=== PATIENT | female | born 1960 | race Hispanic/Latino ===

== ENCOUNTER 2017-09-07 15:48 | Emergency (ER) | payer MEDICARE ==
[2017-09-07 21:05] LABS: Basophils # (Auto) 0.1 K/mm3 (0.0-0.1); Basophils % (Auto) 0.8 % (0.0-1.8); Eosinophils # (Auto) 0.3 K/mm3 (0.0-0.4); Eosinophils % (Auto) 4.4 % (0.0-4.3); Hematocrit 35.9 % (30.3-42.9); Hemoglobin 11.8 gm/dl (10.1-14.3); Lymphocytes # (Auto) 2.1 K/mm3 (1.2-5.4); Lymphocytes % (Auto) 29.7 % (13.4-35.0); Mean Corpuscular HGB Conc 33 % (30-34); Mean Corpuscular Hemoglobin 30 pg (28-32); Mean Corpuscular Volume 91 fl (79-97); Monocytes # (Auto) 0.7 K/mm3 (0.0-0.8); Monocytes % (Auto) 9.6 % (0.0-7.3); Platelet Count 245 K/mm3 (140-440); Red Blood Count 3.95 M/mm3 (3.65-5.03); Red Cell Distribution Width 13.8 % (13.2-15.2)
[2017-09-07 21:16] LABS: BUN/Creatinine Ratio 25; Blood Urea Nitrogen 15 mg/dL (7-17); Calcium 9.1 mg/dL (8.4-10.2); Hemolysis Index 4
--- NOTE | 2017-09-07 21:48 | Emergency Department Report ---
- General Chief complaint: Medical Clearance Stated complaint: ABCESS ON BACK, POSS SPIDER BITE Time Seen by Provider: 09/07/17 19:52 Source: patient Mode of arrival: Ambulatory Limitations: No Limitations - History of Present Illness Initial comments: This is a 57-year-old female nontoxic, well nourished in appearance, no acute signs of distress presents to the ED with c/o of insect bite to left upper back x4 months ago. Patient stated that she believes she was bit by insect 4 months ago and developed redness and pain. PAtient stated that the pain causes her to have weakness and body aches. Patient denies any pus, drainage, fever, chills, nausea, vomiting, headache, stiff neck, numbness or tingling. Patient stated allergies to Levofloxin, doxycycline and penicillin. Patient stated PMH includes arthritis, COPD, hypertension, psychiatric. Patient stated that she is up-to-date with tetanus. MD complaint: insect bite/sting -: month(s) (4) Tetanus Up to Date: yes Location: back Severity: mild Severity scale (0 -10): 8 Quality: aching Consistency: constant Improves with: none Worsens with: none Context: none Associated symptoms: denies other symptoms Treatments Prior to Arrival: none - Related Data Home Medications Medication Instructions Recorded Confirmed Last Taken Citalopram Hydrobromide [celeXA] 40 mg PO DAILY 12/31/12 05/22/13 12/18/15 Albuterol Sulfate [Ventolin HFA] 2 puff IH Q4H PRN 05/22/13 05/22/13 Unknown Promethazine [Phenergan] 25 mg PO Q6H PRN 05/22/13 05/22/13 12/18/15 oxyCODONE [Roxicodone] 5 mg PO Q6H PRN 05/22/13 05/22/13 Unknown Previous Rx's Medication Instructions Recorded Last Taken Type Sulfamethoxazole/Trimethoprim 1 each PO BID #20 tablet 12/10/15 12/18/15 Rx [Bactrim DS TAB] Ibuprofen [Motrin] 800 mg PO Q8HR PRN #30 tablet 12/18/15 Unknown Rx traMADol [Ultram 50 MG tab] 50 mg PO Q4HR PRN #20 tablet 12/18/15 Unknown Rx Acetaminophen/Codeine [Tylenol 1 tab PO Q6H PRN #12 tab 09/07/17 Unknown Rx /Codeine # 3 tab] Clindamycin [Clindamycin CAP] 300 mg PO Q8H #21 cap 09/07/17 Unknown Rx Ibuprofen [Motrin] 600 mg PO Q8H PRN #30 tablet 09/07/17 Unknown Rx Allergies Allergy/AdvReac Type Severity Reaction Status Date / Time doxycycline Allergy Shortness Verified 09/25/15 04:09 of Breath levofloxacin [From Levaquin] Allergy Hives Verified 09/25/15 04:10 Penicillins Allergy Hives Verified 09/25/15 04:09 Abscess Boil HPI - HPI Chief Complaint: Medical Clearance Stated Complaint: ABCESS ON BACK, POSS SPIDER BITE Time Seen by Provider: 09/07/17 19:52 Home Medications: Home Medications Medication Instructions Recorded Confirmed Last Taken Citalopram Hydrobromide [celeXA] 40 mg PO DAILY 12/31/12 05/22/13 12/18/15 Albuterol Sulfate [Ventolin HFA] 2 puff IH Q4H PRN 05/22/13 05/22/13 Unknown Promethazine [Phenergan] 25 mg PO Q6H PRN 05/22/13 05/22/13 12/18/15 oxyCODONE [Roxicodone] 5 mg PO Q6H PRN 05/22/13 05/22/13 Unknown Previous Rx's Medication Instructions Recorded Last Taken Type Sulfamethoxazole/Trimethoprim 1 each PO BID #20 tablet 12/10/15 12/18/15 Rx [Bactrim DS TAB] Ibuprofen [Motrin] 800 mg PO Q8HR PRN #30 tablet 12/18/15 Unknown Rx traMADol [Ultram 50 MG tab] 50 mg PO Q4HR PRN #20 tablet 12/18/15 Unknown Rx Acetaminophen/Codeine [Tylenol 1 tab PO Q6H PRN #12 tab 09/07/17 Unknown Rx /Codeine # 3 tab] Clindamycin [Clindamycin CAP] 300 mg PO Q8H #21 cap 09/07/17 Unknown Rx Ibuprofen [Motrin] 600 mg PO Q8H PRN #30 tablet 09/07/17 Unknown Rx Allergies/Adverse Reactions: Allergies Allergy/AdvReac Type Severity Reaction Status Date / Time doxycycline Allergy Shortness Verified 09/25/15 04:09 of Breath levofloxacin [From Levaquin] Allergy Hives Verified 09/25/15 04:10 Penicillins Allergy Hives Verified 09/25/15 04:09 ED Review of Systems ROS: Stated complaint: ABCESS ON BACK, POSS SPIDER BITE Other details as noted in HPI Constitutional: denies: chills, fever Eyes: denies: eye pain, eye discharge, vision change ENT: denies: ear pain, throat pain Respiratory: denies: cough, shortness of breath, wheezing Cardiovascular: denies: chest pain, palpitations Endocrine: no symptoms reported Gastrointestinal: denies: abdominal pain, nausea, diarrhea Genitourinary: denies: urgency, dysuria, discharge Musculoskeletal: denies: back pain, joint swelling, arthralgia Skin: denies: rash, lesions Neurological: denies: headache, weakness, paresthesias Psychiatric: denies: anxiety, depression Hematological/Lymphatic: denies: easy bleeding, easy bruising ED Past Medical Hx - Past Medical History Hx Hypertension: Yes Hx Arthritis: Yes (osteoarthritis) Hx Psychiatric Treatment: Yes (manic depression) Hx COPD: Yes Additional medical history: IBS, DJD - Surgical History Additional Surgical History: R Knee Surg in August 2012. tubal ligation - Social History Smoking Status: Current Every Day Smoker Substance Use Type: None - Medications Home Medications: Home Medications Medication Instructions Recorded Confirmed Last Taken Type Citalopram Hydrobromide [celeXA] 40 mg PO DAILY 12/31/12 05/22/13 12/18/15 History Albuterol Sulfate [Ventolin HFA] 2 puff IH Q4H PRN 05/22/13 05/22/13 Unknown History Promethazine [Phenergan] 25 mg PO Q6H PRN 05/22/13 05/22/13 12/18/15 History oxyCODONE [Roxicodone] 5 mg PO Q6H PRN 05/22/13 05/22/13 Unknown History Sulfamethoxazole/Trimethoprim 1 each PO BID #20 tablet 12/10/15 12/18/15 Rx [Bactrim DS TAB] Ibuprofen [Motrin] 800 mg PO Q8HR PRN #30 tablet 12/18/15 Unknown Rx traMADol [Ultram 50 MG tab] 50 mg PO Q4HR PRN #20 tablet 12/18/15 Unknown Rx Acetaminophen/Codeine [Tylenol 1 tab PO Q6H PRN #12 tab 09/07/17 Unknown Rx /Codeine # 3 tab] Clindamycin [Clindamycin CAP] 300 mg PO Q8H #21 cap 09/07/17 Unknown Rx Ibuprofen [Motrin] 600 mg PO Q8H PRN #30 tablet 09/07/17 Unknown Rx ED Physical Exam - General Limitations: No Limitations General appearance: alert, in no apparent distress - Head Head exam: Present: atraumatic, normocephalic - Eye Eye exam: Present: normal appearance Pupils: Present: normal accommodation - ENT ENT exam: Present: normal exam, mucous membranes moist - Neck Neck exam: Present: normal inspection, full ROM. Absent: tenderness, meningismus, lymphadenopathy - Respiratory Respiratory exam: Present: normal lung sounds bilaterally. Absent: respiratory distress, wheezes, rales, rhonchi, stridor, chest wall tenderness, accessory muscle use, decreased breath sounds, prolonged expiratory - Cardiovascular Cardiovascular Exam: Present: regular rate, normal rhythm, normal heart sounds. Absent: bradycardia, tachycardia, irregular rhythm, systolic murmur, diastolic murmur, rubs, gallop - GI/Abdominal GI/Abdominal exam: Present: soft, normal bowel sounds. Absent: distended, tenderness, guarding, rebound, rigid, diminished bowel sounds - Rectal Rectal exam: Present: deferred - Extremities Exam Extremities exam: Present: normal inspection, full ROM, normal capillary refill. Absent: tenderness - Back Exam Back exam: Present: normal inspection, full ROM, other (small scab to upper back with no signs of cellulitits or abscess formation). Absent: tenderness, CVA tenderness (R), CVA tenderness (L), muscle spasm, paraspinal tenderness, vertebral tenderness, rash noted - Neurological Exam Neurological exam: Present: alert, oriented X3, CN II-XII intact, normal gait - Psychiatric Psychiatric exam: Present: normal affect, normal mood - Skin Skin exam: Present: warm, dry, intact, normal color. Absent: rash ED Course Vital Signs 09/07/17 16:04 Temperature 98.3 F Pulse Rate 83 Respiratory 18 Rate Blood Pressure 114/80 O2 Sat by Pulse 99 Oximetry - Reevaluation(s) Reevaluation #1: 09/07/17 21:46 Patient is speaking in full sentences with no signs of distress noted. ED Medical Decision Making - Lab Data Result diagrams: 09/07/17 20:50 09/07/17 20:50 - Medical Decision Making This is a 57-year-old female that presents with left back scab pain. Vision stable was examined by me. Upon examination there is no signs of any abscess, or cellulitis. Patient is pointing to the scab site pain and stated that he is concerned that he is developing an abscess. I instructed and educated patient that this is related to a scap but patient stated she wants to be treated empirically with antibiotics. Labs unremarkable. I will discharge patient with Clinda as she is requesting needs to prescribe it. Patient was referred to Follow-up with a primary care doctor in 3-5 days or if symptoms worsen and continue return to emergency room as soon as possible. At time of discharge, the patient does not seem toxic or ill in appearance. No acute signs of distress noted. Patient agrees to discharge treatment plan of care. No further questions noted by the patient. Critical care attestation.: If time is entered above; I have spent that time in minutes in the direct care of this critically ill patient, excluding procedure time. ED Disposition Clinical Impression: Scab Disposition: [id number] TO HOME OR SELFCARE Is pt being admited?: No Does the pt Need Aspirin: No Condition: Stable Instructions: Acetaminophen/Codeine (By mouth) Additional Instructions: Follow-up with a primary care doctor in 3-5 days or if symptoms worsen and continue return to emergency room as soon as possible. Do not operate any machinery while taking Tylenol with codeine as this may cause drowsiness. Prescriptions: Acetaminophen/Codeine [Tylenol /Codeine # 3 tab] 1 tab PO Q6H PRN #12 tab PRN Reason: Pain , Severe (7-10) Clindamycin [Clindamycin CAP] 300 mg PO Q8H #21 cap Ibuprofen [Motrin] 600 mg PO Q8H PRN #30 tablet PRN Reason: Pain Referrals: ROGERIO CASTANEDA MD [Primary Care Provider] - 3-5 Days PRIMARY CAREMD [Referring] - 3-5 Days DARION DYER MD [Staff Physician] - 3-5 Days [facility] [Outside] - 3-5 Days
[2017-09-07 22:01] VITALS: BP 122/80
== END 2017-09-07 22:01 | disposition home or self-care (01) ==
LOC: ED 15:48
DX: R23.4 Changes in skin texture (principal); I10 Essential (primary) hypertension; M19.90 Unspecified osteoarthritis, unspecified site; F32.9 Major depressive disorder, single episode, unspecified; J44.9 Chronic obstructive pulmonary disease, unspecified; F17.200 Nicotine dependence, unspecified, uncomplicated; Z98.51 Tubal ligation status; Z88.1 Allergy status to other antibiotic agents; Z88.0 Allergy status to penicillin
CPT/HCPCS: 36415; 80048; 85025; 99283

== ENCOUNTER 2017-10-04 15:47 | Emergency (ER) | payer MEDICARE ==
--- NOTE | 2017-10-04 19:04 | Emergency Department Report ---
ED Rash HPI - HPI Chief Complaint: Skin Rash Stated Complaint: STAPH INFECTION WORRSEN Time Seen by Provider: 10/04/17 17:00 Duration: 4 months Location: Back, Other (face) Suspected Cause: Unknown Rash Symptoms: Yes Peeling (sure port erythema area to the back and facial areas as been there for 4 months. No follow-up. She said she received clindamycin without any relief), No Itching, No Facial Swelling, No Tongue/Oral Swelling, No Breathing Difficulties, No Choking Sensation, No Wheezing/Dyspnea, No Blistering, No Fever, No Lightheaded, No Malaise, No Myalgias Severity: severe (12/02) Other History: This is a 57-year-old patient here report that she had rash on her back and facial area for 4 months and she is taking clindamycin that did not help. Patient said that she is here to find out what the rash is. She denies any fever or chills. Denies any itchy. Denies any draining. Tetanus vaccine is up-to-date. Patient said that she has not been to a import export agent when asked. She reports the pain is 10 out of 10 and sore. Worse to touch and no alleviating factors. ED Review of Systems ROS: Stated complaint: STAPH INFECTION WORRSEN Other details as noted in HPI Constitutional: denies: chills, fever ENT: denies: ear pain, throat pain, congestion Respiratory: denies: cough, shortness of breath, SOB with exertion, SOB at rest , stridor, wheezing Cardiovascular: denies: chest pain, palpitations, edema, syncope Gastrointestinal: denies: nausea, vomiting Musculoskeletal: denies: back pain, joint swelling, arthralgia Skin: rash. denies: lesions, change in color, change in hair/nails Neurological: denies: headache ED Past Medical Hx - Past Medical History Previous Medical History?: Yes Hx Hypertension: Yes Hx Arthritis: Yes (osteoarthritis) Hx Psychiatric Treatment: Yes (manic depression) Hx COPD: Yes Additional medical history: IBS, DJD, - Surgical History Past Surgical History?: Yes Additional Surgical History: R Knee Surg in August 2012. tubal ligation - Family History Family history: hypertension - Social History Smoking Status: Never Smoker Substance Use Type: None - Medications Home Medications: Home Medications Medication Instructions Recorded Confirmed Last Taken Type Citalopram Hydrobromide [celeXA] 40 mg PO DAILY 12/31/12 05/22/13 12/18/15 History Albuterol Sulfate [Ventolin HFA] 2 puff IH Q4H PRN 05/22/13 05/22/13 Unknown History Promethazine [Phenergan] 25 mg PO Q6H PRN 05/22/13 05/22/13 12/18/15 History oxyCODONE [Roxicodone] 5 mg PO Q6H PRN 05/22/13 05/22/13 Unknown History Ibuprofen [Motrin] 800 mg PO Q8HR PRN #30 tablet 12/18/15 Unknown Rx traMADol [Ultram 50 MG tab] 50 mg PO Q4HR PRN #20 tablet 12/18/15 Unknown Rx Acetaminophen/Codeine [Tylenol 1 tab PO Q6H PRN #12 tab 09/07/17 Unknown Rx /Codeine # 3 tab] Clindamycin [Clindamycin CAP] 300 mg PO Q8H #21 cap 09/07/17 Unknown Rx Ibuprofen [Motrin 600 MG tab] 600 mg PO Q8H PRN #30 tablet 10/04/17 Unknown Rx Mupirocin [Bactroban 2%] 1 applic TP BID 7 Days #1 tube 10/04/17 Unknown Rx Sulfamethoxazole/Trimethoprim 1 each PO BID #20 tablet 10/04/17 Unknown Rx [Bactrim DS TAB] Rash Exam - Exam General: Vital signs noted. No distress. Alert and acting appropriately. This is a 57-year-old female well-nourished well-developed in no acute distress. HEENT: No Periorbital Edema, No Conjuctival Injection, No Chemosis, No Perioral Edema, No Tongue Edema, No Uvular Edema, No Compromised Airway, No Drooling Lungs: Yes Good Air Exchange, No Wheezes, No Ronchi, No Stridor, No Cough, No Labored Respirations, No Retractions, No Use of Accessory Muscles, No Other Abnormal Lung Sounds Heart: Yes Regular (S1, S2), No Murmur Front/Back of Body, Lg (Color): 1 - Patient with irregular, erythema, non-indurated area to facial area approximately 2 cm. flat and patch like appearance 2 - Erythema, less than 1 cm area to posterior thorax. No drainage noted. Skin: Yes Excoriations (minimal excoriation), Yes Tenderness (minimal tenderness to palpate), Yes Erythema (1 area in the facial area and to posterior thorax), Yes Other (area appears that patient scratching.), No Urticarial Rash, No Maculopapular Rash, No Morbilliform rash, No Bulla(e), No Edema, No Encrustations ED Course Vital Signs 10/04/17 15:54 Temperature 98.2 F Pulse Rate 109 H Respiratory 20 Rate Blood Pressure 167/106 O2 Sat by Pulse 100 Oximetry Vital Signs 10/04/17 10/04/17 15:54 19:50 Temperature 98.2 F Pulse Rate 109 H 92 H Respiratory 20 88 H Rate Blood Pressure 167/106 Blood Pressure 140/84 [Left] O2 Sat by Pulse 100 Oximetry - Reevaluation(s) Reevaluation #1: 10/04/17 19:54 Patient given Gibbon 5/325 2 tablets. Emergency room for pain. ED Medical Decision Making - Medical Decision Making This is a 57-year-old female here because she says she has been having rash to her facial area and to back for 4 months that she took clindamycin did not help. Tetanus vaccine is up-to-date . She has not been to a import export agent. I saw and examined patient and her physical exam is normal except she has erythema, flat areas to the posterior thorax and flat that is nontender to palpate and no signs of drainage. Patient tetanus vaccine is up-to-date. She was given Gibbon to relieve pain. I discussed the patient her diagnosis and told that she needs to follow-up with import export agent put on Bactrim to see if this helps and she agreed. A/P Contact dermatitis-referral to import export agent Dr. lemons Cellulitis-patient will be placed on vacuum DS. She was given Gibbon 5/325 2 tablets by mouth for pain emergency room which helped. Patient instructed on medication, diagnosis, and to keep referral to the import export agent to call tomorrow to schedule an appointment and she voiced understanding. Pt discharged home in stable condition with her . Vital signs are stable she is afebrile and denies any pain at present. Discharge home with prescription for Motrin and Bactrim DS and to follow-up with import export agent in 2- 3 days Critical care attestation.: If time is entered above; I have spent that time in minutes in the direct care of this critically ill patient, excluding procedure time. ED Disposition Clinical Impression: Rash and nonspecific skin eruption Cellulitis Qualifiers: Site of cellulitis: unspecified site Qualified Code(s): L03.90 - Cellulitis, unspecified Disposition: TO HOME OR SELFCARE Is pt being admited?: No Does the pt Need Aspirin: No Condition: Stable Instructions: Wound Infection (ED), Cellulitis (ED), Wound Healing and Your Diet (ED), Excoriation Disorder (GEN) Additional Instructions: Please keep affected areas clean and dry Apply Bactroban ointment to site as directed Take antibiotic as prescribed Take Motrin for pain Please follow up with import export agent as recommended Prescriptions: Ibuprofen [Motrin 600 MG tab] 600 mg PO Q8H PRN #30 tablet PRN Reason: Pain Mupirocin [Bactroban 2%] 1 applic TP BID 7 Days #1 tube Sulfamethoxazole/Trimethoprim [Bactrim DS TAB] 1 each PO BID #20 tablet Referrals: PRIMARY CARE, [Primary Care Provider] - 2-3 Days JEANNE OBRIEN MD [Staff Physician] - 2-3 Days [facility] [Outside] - 2-3 Days Forms: Work/School Release Form(ED)
[2017-10-04] MEDS ORDERED: NORCO 5/325 PO ONE (19:47)
[2017-10-04 19:51] VITALS: BP 140/84
== END 2017-10-04 20:15 | disposition home or self-care (01) ==
LOC: ED 15:47
DX: L03.90 Cellulitis, unspecified (principal); I10 Essential (primary) hypertension; M19.90 Unspecified osteoarthritis, unspecified site; F32.9 Major depressive disorder, single episode, unspecified; H44.9 Unspecified disorder of globe; Z98.51 Tubal ligation status
CPT/HCPCS: 99282

== ENCOUNTER 2019-05-02 16:34 | Emergency (ER) | payer MEDICARE ==
--- NOTE | 2019-05-02 18:43 | Emergency Department Report ---
Blank Doc - Documentation Documentation: 58-year-old female that presents with body aches, cough, fever, back pains. This initial assessment/diagnostic orders/clinical plan/treatment(s) is/are subject to change based on patient's health status, clinical progression and re- assessment by fellow clinical providers in the ED. Further treatment and workup at subsequent clinical providers discretion. Patient/guardians urged not to elope from the ED as their condition may be serious if not clinically assessed and managed. Initial orders include: 1- Patient sent to [facility] for further evaluation and treatment 2- CXR
--- NOTE | 2019-05-02 19:36 | XRay Report ---
CHEST 1 VIEW INDICATION / CLINICAL INFORMATION: MAIN: cough; Pt. c/o weakness, back pain, chills, and congestion.. COMPARISON: None available. FINDINGS: SUPPORT DEVICES: None. HEART / MEDIASTINUM: The heart size is normal. LUNGS / PLEURA: Biapical pleural thickening. The lungs are clear. Signer Name: Nato Noel MD Signed: 05/02/2019 7:32 PM Workstation Name: [id number]
[2019-05-02] MEDS ORDERED: HYDROcodone/ACETAMINOPHEN 5-325 MG TAB PO ONE (19:49)
[2019-05-02 20:16] LABS: Basophils % (Auto) 0.8 % (0.0-1.8); Eosinophils # (Auto) 0.3 K/mm3 (0.0-0.4); Eosinophils % (Auto) 4.3 % (0.0-4.3); Hematocrit 38.2 % (30.3-42.9); Hemoglobin 12.6 gm/dl (10.1-14.3); Lymphocytes # (Auto) 2.2 K/mm3 (1.2-5.4); Lymphocytes % (Auto) 34.7 % (13.4-35.0); Mean Corpuscular HGB Conc 33 % (30-34); Mean Corpuscular Volume 92 fl (79-97); Monocytes # (Auto) 0.5 K/mm3 (0.0-0.8); Platelet Count 237 K/mm3 (140-440); Red Blood Count 4.16 M/mm3 (3.65-5.03); Red Cell Distribution Width 14.2 % (13.2-15.2)
[2019-05-02 20:25] LABS: Partial Thromboplastin Time 25.6 Sec. (24.2-36.6)
[2019-05-02 20:32] LABS: Alanine Aminotransferase 8 units/L (7-56); Albumin 4.3 g/dL (3.9-5); BUN/Creatinine Ratio 26; Blood Urea Nitrogen 18 mg/dL (7-17); Calcium 9.7 mg/dL (8.4-10.2); Hemolysis Index 8
[2019-05-02 20:40] VITALS: BP 108/63
--- NOTE | 2019-05-02 20:45 | XRay Report ---
Right hip 2 views INDICATION: Right hip pain. IMPRESSION: No fracture or subluxation of the right hip is identified. Signer Name: Nato Noel MD Signed: 05/02/2019 8:41 PM Workstation Name: [id number]
--- NOTE | 2019-05-02 20:47 | Cat Scan Report ---
CT BRAIN: 05/02/2019 INDICATION / CLINICAL INFORMATION: weakness. COMPARISON: None available. FINDINGS: BRAIN/INTRACRANIAL STRUCTURES: Unenhanced CT images of the brain demonstrate no evidence of acute int racranial abnormality. Ventricles and sulci are somewhat prominent in size for a patient of this age, consistent with diffus e cerebral atrophy. Chronic white matter hypoattenuation is present. There is no CT evidence of acute ischemic injury, hemorrhage, or mass. There are no abnormal extra-ax ial fluid collections. 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 EXTRACRANIAL STRUCTURES: Unremarkable. IMPRESSION: No acute abnormality. Chronic and age-related changes. All CT scans at this location are performed using dose reduction to ALARA by means of automated expos ure control. Signer Name: Deangelo Barton MD Signed: 05/02/2019 8:42 PM Workstation Name: [id number]
--- NOTE | 2019-05-02 22:46 | Emergency Department Report ---
ED General Adult HPI - General Chief complaint: Weakness Stated complaint: WEAK LEGS, SEEING DOUBLE Time Seen by Provider: 05/02/19 18:41 Source: patient Mode of arrival: Ambulatory Limitations: No Limitations - History of Present Illness Initial comments: Ms. Sal is a 58-year-old white female with history of generalized arthritis who presents with generalized weakness per patient bilateral lower extremity pain worsening over the past 3 days. Patient has history of arthritis takes NSAIDs as needed for same. She denies fall, injury, or trauma. States pain flared 3 days ago, exacerbating her anxiety, and making her anxious, she states generalized weakness cough malaise, she denies smoking, cough is nonproductive, she denies fever. She advises arthritis pain is so bad at times it prevents him from walking due to pain. However patient is amatory with steady gait at this time. Onset/Timin -: days(s) Location: back, upper extremity, lower extremity Severity scale (0 -10): 5 Quality: aching Consistency: constant Improves with: rest Worsens with: movement Associated Symptoms: cough, malaise, weakness. denies: confusion, chest pain, diaphoresis, fever/chills, headaches, nausea/vomiting, shortness of breath Treatments Prior to Arrival: none - Related Data Home Medications Medication Instructions Recorded Confirmed Last Taken Citalopram Hydrobromide [celeXA] 40 mg PO DAILY 12/31/12 05/22/13 12/18/15 Albuterol Sulfate [Ventolin HFA] 2 puff IH Q4H PRN 05/22/13 05/22/13 Unknown Promethazine [Phenergan] 25 mg PO Q6H PRN 05/22/13 05/22/13 12/18/15 oxyCODONE [Roxicodone] 5 mg PO Q6H PRN 05/22/13 05/22/13 Unknown Previous Rx's Medication Instructions Recorded Last Taken Type Ibuprofen [Motrin] 800 mg PO Q8HR PRN #30 tablet 12/18/15 Unknown Rx traMADoL [Ultram 50 MG tab] 50 mg PO Q4HR PRN #20 tablet 12/18/15 Unknown Rx Acetaminophen/Codeine [Tylenol 1 tab PO Q6H PRN #12 tab 09/07/17 Unknown Rx /Codeine # 3 tab] Clindamycin [Clindamycin CAP] 300 mg PO Q8H #21 cap 09/07/17 Unknown Rx Ibuprofen [Motrin 600 MG tab] 600 mg PO Q8H PRN #30 tablet 10/04/17 Unknown Rx Mupirocin [Bactroban 2%] 1 applic TP BID 7 Days #1 tube 10/04/17 Unknown Rx Sulfamethoxazole/Trimethoprim 1 each PO BID #20 tablet 10/04/17 Unknown Rx [Bactrim DS TAB] Acetaminophen [Non-Aspirin Extra 1,000 mg PO Q6H PRN #60 tablet 05/02/19 Unknown Rx Strength] Diclofenac 1% [Diclofenac 1% 100 gm TP QID PRN #1 tube 05/02/19 Unknown Rx topical gel] Allergies Allergy/AdvReac Type Severity Reaction Status Date / Time doxycycline Allergy Shortness Verified 09/25/15 04:09 of Breath levofloxacin [From Levaquin] Allergy Hives Verified 09/25/15 04:10 Penicillins Allergy Hives Verified 09/25/15 04:09 ED Review of Systems ROS: Stated complaint: WEAK LEGS, SEEING DOUBLE Other details as noted in HPI Constitutional: denies: chills, fever Eyes: denies: eye pain, eye discharge, vision change ENT: denies: ear pain, throat pain Respiratory: denies: cough, shortness of breath, wheezing Cardiovascular: denies: chest pain, palpitations Endocrine: no symptoms reported Gastrointestinal: denies: abdominal pain, nausea, diarrhea Genitourinary: as per HPI Musculoskeletal: back pain, arthralgia, myalgia (bilat le ). denies: joint swelling Skin: as per HPI Neurological: denies: headache, weakness, paresthesias Psychiatric: denies: anxiety, depression Hematological/Lymphatic: as per HPI ED Past Medical Hx - Past Medical History Previous Medical History?: Yes Hx Hypertension: Yes Hx Arthritis: Yes (osteoarthritis) Hx Psychiatric Treatment: Yes (manic depression) Hx COPD: Yes Additional medical history: IBS, DJD, - Surgical History Past Surgical History?: Yes Additional Surgical History: R Knee Surg in August 2012. tubal ligation - Social History Smoking Status: Never Smoker Substance Use Type: None - Medications Home Medications: Home Medications Medication Instructions Recorded Confirmed Last Taken Type Citalopram Hydrobromide [celeXA] 40 mg PO DAILY 12/31/12 05/22/13 12/18/15 History Albuterol Sulfate [Ventolin HFA] 2 puff IH Q4H PRN 05/22/13 05/22/13 Unknown History Promethazine [Phenergan] 25 mg PO Q6H PRN 05/22/13 05/22/13 12/18/15 History oxyCODONE [Roxicodone] 5 mg PO Q6H PRN 05/22/13 05/22/13 Unknown History Ibuprofen [Motrin] 800 mg PO Q8HR PRN #30 tablet 12/18/15 Unknown Rx traMADoL [Ultram 50 MG tab] 50 mg PO Q4HR PRN #20 tablet 12/18/15 Unknown Rx Acetaminophen/Codeine [Tylenol 1 tab PO Q6H PRN #12 tab 09/07/17 Unknown Rx /Codeine # 3 tab] Clindamycin [Clindamycin CAP] 300 mg PO Q8H #21 cap 09/07/17 Unknown Rx Ibuprofen [Motrin 600 MG tab] 600 mg PO Q8H PRN #30 tablet 10/04/17 Unknown Rx Mupirocin [Bactroban 2%] 1 applic TP BID 7 Days #1 tube 10/04/17 Unknown Rx Sulfamethoxazole/Trimethoprim 1 each PO BID #20 tablet 10/04/17 Unknown Rx [Bactrim DS TAB] Acetaminophen [Non-Aspirin Extra 1,000 mg PO Q6H PRN #60 tablet 05/02/19 Unknown Rx Strength] Diclofenac 1% [Diclofenac 1% 100 gm TP QID PRN #1 tube 05/02/19 Unknown Rx topical gel] ED Physical Exam - General Limitations: No Limitations General appearance: alert, in no apparent distress - Head Head exam: Present: atraumatic, normocephalic - Eye Eye exam: Present: normal appearance, PERRL, EOMI Pupils: Present: normal accommodation - ENT ENT exam: Present: mucous membranes moist - Neck Neck exam: Present: normal inspection, full ROM. Absent: tenderness, meningismus, lymphadenopathy, thyromegaly - Expanded Neck Exam Expanded Neck exam: Absent: tenderness, midline deformity - Respiratory Respiratory exam: Present: normal lung sounds bilaterally. Absent: respiratory distress, wheezes, stridor, chest wall tenderness - Cardiovascular Cardiovascular Exam: Present: regular rate, normal rhythm, normal heart sounds. Absent: systolic murmur, diastolic murmur, rubs, gallop - GI/Abdominal GI/Abdominal exam: Present: soft, normal bowel sounds. Absent: distended, tenderness, bruit, hernia - Rectal Rectal exam: Present: deferred - Extremities Exam Extremities exam: Present: normal inspection, full ROM, normal capillary refill. Absent: tenderness, pedal edema, joint swelling, calf tenderness - Expanded Lower Extremity Exam Left Hip exam: Present: full ROM. Absent: tenderness, swelling, abrasion, ecchymosis, deformity, crepidus Upper Leg exam: Present: full ROM. Absent: tenderness, swelling Knee exam: Present: full ROM. Absent: tenderness, swelling Lower Leg exam: Present: full ROM. Absent: tenderness, swelling Foot/Toe exam: Present: normal inspection. Absent: tenderness, swelling Neuro vascular tendon exam: Absent: pulse deficit, motor deficit, sensory deficit, tendon deficit Gait: Positive: observed and normal Right Hip exam: Present: full ROM. Absent: tenderness, swelling, abrasion, ecchymosis, deformity, crepidus Upper Leg exam: Present: normal inspection, full ROM. Absent: swelling Knee exam: Present: full ROM. Absent: tenderness Lower Leg exam: Present: full ROM. Absent: tenderness, swelling Ankle exam: Present: full ROM. Absent: tenderness, swelling Foot/Toe exam: Present: full ROM. Absent: tenderness, swelling Neuro vascular tendon exam: Absent: pulse deficit, motor deficit, sensory deficit, tendon deficit Gait: Positive: observed and normal - Back Exam Back exam: Present: normal inspection, full ROM, tenderness, paraspinal tenderness. Absent: CVA tenderness (R), CVA tenderness (L), muscle spasm, vertebral tenderness, rash noted - Expanded Back Exam Expanded Back exam: Absent: saddle anesthesia Back exam: Positive Straight Leg Raise: Left, Right - Neurological Exam Neurological exam: Present: alert, oriented X3, CN II-XII intact, normal gait, reflexes normal. Absent: motor sensory deficit - Expanded Neurological Exam Expanded Patient oriented to: Present: person, place, time Speech: Present: fluid speech Cranial nerves: EOM's Intact: Normal, Gag Reflex: Normal, Tongue Deviation: Normal, Nystagmus: Normal Motor strength exam: RUE: 5, LUE: 5, RLE: 5, LLE: 5 Best Eye Response ([place]): (4) open spontaneously Best Motor Response ([place]): (6) obeys commands Best Verbal Response ([place]): (5) oriented [place] Total: 15 - Psychiatric Psychiatric exam: Present: normal affect, normal mood - Skin Skin exam: Present: warm, dry, intact, normal color. Absent: rash ED Course Vital Signs 05/02/19 05/02/19 05/02/19 18:42 18:44 20:39 Temperature 99 F 99.1 F Pulse Rate 88 100 H 97 H Respiratory 20 22 Rate Blood Pressure 106/67 Blood Pressure 108/63 [Right] O2 Sat by Pulse 95 100 Oximetry ED Medical Decision Making - Lab Data Result diagrams: 05/02/19 19:56 05/02/19 19:56 - EKG Data EKG shows normal: sinus rhythm, axis, intervals, QRS complexes, ST-T waves Rate: normal - EKG Data Interpretation: normal EKG (Normal ekg no ST Elevated [place] ,ekg interp be ED attending. ) - Radiology Data Radiology results: report reviewed, image reviewed right hip xray IMPRESSION: No fracture or subluxation of the right hip is identified FINDINGS: BRAIN/INTRACRANIAL STRUCTURES: Unenhanced CT images of the brain demonstrate no evidence of acute intracranial abnormality. Ventricles and sulci are somewhat prominent in size for a patient of this age, consistent with diffuse cerebral atrophy. Chronic white matter hypoattenuation is present. There is no CT evidence of acute ischemic injury, hemorrhage, or mass. There are no abnormal extra-axial fluid collections. 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 EXTRACRANIAL STRUCTURES: Unremarkable. IMPRESSION: No acute abnormality. Chronic and age-related changes. All CT scans at this location are performed using dose reduction to ALARA by means of automated exposure control. Signer Name: Deangelo Barton MD Signed: 05/02/2019 8:42 PM Workstation Name: [id number] Transcribed By: AO Dictated By: Deangelo Barton MD Electronically Authenticated By: Deangelo Barton MD Signed Date/Time: 05/02/192041 cxr" FINDINGS: SUPPORT DEVICES: None. HEART / MEDIASTINUM: The heart size is normal. LUNGS / PLEURA: Biapical pleural thickening. The lungs are clear. Signer Name: Nato Noel MD Signed: 05/02/2019 7:32 PM Workstation Name: [id number] - Medical Decision Making This is not a CVA CT scan is normal. This is not a [place] heart score is 0, troponin less than 0.01, EKG is normal sinus rhythm no ST elevated [place] EKG interpreted by ED attending . All labs normal. CT: chronic changes no acute bleed no mass no CVA. Chest x-ray normal no infiltrate no opacities. Right hip x-ray no fracture no soft tissue abnormality. Patient states pain is improved with medications given in ED. Patient is currently ambulatory and ED without pain and discomfort. Plan DC to home with prescription for Tylenol , analgesic balm, and follow-up with primary care in 2 to 3 days. Patient verbalizes agreement and understanding with discharge plan. Patient is DC to home in stable condition at this time . Patient declines UA stating that she feels be tter, and that her primary concern was the hip and leg pain which are relieved at this time. Critical care attestation.: If time is entered above; I have spent that time in minutes in the direct care of this critically ill patient, excluding procedure time. ED Disposition Clinical Impression: Arthritis, Weakness Disposition: DC-01 TO HOME OR SELFCARE Is pt being admited?: No Does the pt Need Aspirin: No Condition: Stable Instructions: Arthralgia (ED) Prescriptions: Diclofenac 1% [Diclofenac 1% topical gel] 100 gm TP QID PRN #1 tube PRN Reason: pain Acetaminophen [Non-Aspirin Extra Strength] 1,000 mg PO Q6H PRN #60 tablet PRN Reason: pain Referrals: [facility] [Outside] - 3-5 Days Time of Disposition: 00:06
== END 2019-05-03 00:15 | disposition home or self-care (01) ==
LOC: ED 16:34
DX: M19.90 Unspecified osteoarthritis, unspecified site (principal); R53.1 Weakness; I10 Essential (primary) hypertension; F30.10 Manic episode without psychotic symptoms, unspecified; J44.9 Chronic obstructive pulmonary disease, unspecified; Z98.890 Other specified postprocedural states; Z98.51 Tubal ligation status; Z79.899 Other long term (current) drug therapy; Z88.0 Allergy status to penicillin; Z88.1 Allergy status to other antibiotic agents
CPT/HCPCS: 36415; 70450; 71046; 80053; 84484; 85025; 85610; 85730; 93005; 93010

== ENCOUNTER 2020-08-26 19:02 | Emergency (ER) | payer MEDICARE ==
[2020-08-26 19:36] VITALS: BP 124/85
[2020-08-26] MEDS ORDERED: HYDROcodone/ACETAMINOPHEN 5-325 MG TAB PO STA (21:11)
[2020-08-26] MEDS ORDERED: oxyCODONE /ACETAMINOPHEN 5-325MG TAB PO ONE (23:27)
[2020-08-26] MEDS ORDERED: KETOROLAC 30 MG/1 ML INJ IV ONE (23:37)
--- NOTE | 2020-08-26 23:59 | XRay Report ---
XR wrist 2V LT INDICATION: wrist deformity and pain previous injury COMPARISON: None. FINDINGS/IMPRESSION: Impacted transverse distal radial fracture. No intra-articular extension. Dorsal angulation. Associat ed avulsion fracture of the ulnar styloid process. Carpal rows are maintained. Signer Name: Sky Fregoso MD Signed: 08/26/2020 11:55 PM Workstation Name: [id number]
--- NOTE | 2020-08-27 00:24 | Emergency Department Report ---
ED General Adult HPI - General Chief complaint: Extremity Injury, Upper Stated complaint: WRIST INJURY Time Seen by Provider: 08/26/20 23:28 Source: EMS Mode of arrival: Wheelchair Limitations: No Limitations - History of Present Illness Initial comments: 60-year-old female presents emerged department for evaluation of left wrist injury which was sustained on July 03 which she was seen at [facility] and assessed to have a fracture of her wrist and advised to follow-up with with orthopedic which he is not yet been able to do since she has returned to live here in [place]. Pain is dull and and and throbbing she states that her splint began to smell and become saturated so she decided to remove it and now she tried to create a splint to apply herself to her wrist she reports her hand became swollen and tender so she is came to my department seeking further valuation treatment options. States that the primary hold-up in her getting treatment for the wrist was waiting on her wire technician to send her to the right orthopedic. Severity scale (0 -10): 5 Quality: aching, dull, constant Consistency: constant Worsens with: movement Associated Symptoms: denies: chest pain, loss of appetite, malaise, shortness of breath, weakness - Related Data Home Medications Medication Instructions Recorded Confirmed Last Taken Citalopram Hydrobromide [celeXA] 40 mg PO DAILY 12/31/12 05/22/13 12/18/15 Albuterol Sulfate [Ventolin HFA] 2 puff IH Q4H PRN 05/22/13 05/22/13 Unknown Promethazine [Phenergan] 25 mg PO Q6H PRN 05/22/13 05/22/13 12/18/15 oxyCODONE [Roxicodone] 5 mg PO Q6H PRN 05/22/13 05/22/13 Unknown Previous Rx's Medication Instructions Recorded Last Taken Type Ibuprofen [Motrin] 800 mg PO Q8HR PRN #30 tablet 12/18/15 Unknown Rx traMADoL [Ultram 50 MG tab] 50 mg PO Q4HR PRN #20 tablet 12/18/15 Unknown Rx Clindamycin [Clindamycin CAP] 300 mg PO Q8H #21 cap 09/07/17 Unknown Rx Ibuprofen [Motrin 600 MG tab] 600 mg PO Q8H PRN #30 tablet 10/04/17 Unknown Rx Mupirocin [Bactroban 2%] 1 applic TP BID 7 Days #1 tube 10/04/17 Unknown Rx Sulfamethoxazole/Trimethoprim 1 each PO BID #20 tablet 10/04/17 Unknown Rx [Bactrim DS TAB] Diclofenac 1% [Diclofenac 1% 100 gm TP QID PRN #1 tube 05/02/19 Unknown Rx topical gel] Meloxicam [Mobic] 7.5 mg PO QDAY #15 tablet 05/03/19 Unknown Rx Ketorolac [Toradol] 10 mg PO Q6H PRN #10 tablet 08/27/20 Unknown Rx Allergies Allergy/AdvReac Type Severity Reaction Status Date / Time doxycycline Allergy Shortness Verified 09/25/15 04:09 of Breath levofloxacin [From Levaquin] Allergy Hives Verified 09/25/15 04:10 Penicillins Allergy Hives Verified 09/25/15 04:09 ED Review of Systems ROS: Stated complaint: WRIST INJURY Other details as noted in HPI Comment: All other systems reviewed and negative ED Past Medical Hx - Past Medical History Previous Medical History?: No Hx Hypertension: Yes Hx Arthritis: Yes (osteoarthritis) Hx Psychiatric Treatment: Yes (manic depression) Hx COPD: Yes Additional medical history: IBS, DJD, - Surgical History Past Surgical History?: No Additional Surgical History: R Knee Surg in August 2012. tubal ligation - Social History Smoking Status: Never Smoker Substance Use Type: None - Medications Home Medications: Home Medications Medication Instructions Recorded Confirmed Last Taken Type Citalopram Hydrobromide [celeXA] 40 mg PO DAILY 12/31/12 05/22/13 12/18/15 History Albuterol Sulfate [Ventolin HFA] 2 puff IH Q4H PRN 05/22/13 05/22/13 Unknown History Promethazine [Phenergan] 25 mg PO Q6H PRN 05/22/13 05/22/13 12/18/15 History oxyCODONE [Roxicodone] 5 mg PO Q6H PRN 05/22/13 05/22/13 Unknown History Ibuprofen [Motrin] 800 mg PO Q8HR PRN #30 tablet 12/18/15 Unknown Rx traMADoL [Ultram 50 MG tab] 50 mg PO Q4HR PRN #20 tablet 12/18/15 Unknown Rx Clindamycin [Clindamycin CAP] 300 mg PO Q8H #21 cap 09/07/17 Unknown Rx Ibuprofen [Motrin 600 MG tab] 600 mg PO Q8H PRN #30 tablet 10/04/17 Unknown Rx Mupirocin [Bactroban 2%] 1 applic TP BID 7 Days #1 tube 10/04/17 Unknown Rx Sulfamethoxazole/Trimethoprim 1 each PO BID #20 tablet 10/04/17 Unknown Rx [Bactrim DS TAB] Diclofenac 1% [Diclofenac 1% 100 gm TP QID PRN #1 tube 05/02/19 Unknown Rx topical gel] Meloxicam [Mobic] 7.5 mg PO QDAY #15 tablet 05/03/19 Unknown Rx Ketorolac [Toradol] 10 mg PO Q6H PRN #10 tablet 08/27/20 Unknown Rx ED Physical Exam - General Limitations: No Limitations General appearance: alert, in no apparent distress - Head Head exam: Present: atraumatic, normocephalic - Eye Eye exam: Present: normal appearance, PERRL, EOMI Pupils: Present: normal accommodation - ENT ENT exam: Present: mucous membranes moist - Neck Neck exam: Present: normal inspection - Respiratory Respiratory exam: Present: normal lung sounds bilaterally. Absent: respiratory distress - Cardiovascular Cardiovascular Exam: Present: regular rate, normal rhythm. Absent: systolic murmur, diastolic murmur, rubs, gallop - GI/Abdominal GI/Abdominal exam: Present: soft, normal bowel sounds - Extremities Exam Extremities exam: Present: normal inspection - Back Exam Back exam: Present: normal inspection - Neurological Exam Neurological exam: Present: alert, oriented X3 - Psychiatric Psychiatric exam: Present: normal affect, normal mood - Skin Skin exam: Present: warm, dry, intact, normal color. Absent: rash ED Course Vital Signs 08/26/20 08/27/20 19:34 04:38 Temperature 98.4 F Pulse Rate 91 H 83 Respiratory 18 17 Rate Blood Pressure 124/85 O2 Sat by Pulse 95 97 Oximetry ED Medical Decision Making - Radiology Data Radiology results: report reviewed [facility] [address] [place] [address] XRay Report Signed Patient: RICARDO NAVARRO MR#: [id number] : 1960 Acct:[id number] Age/Sex: 60 / F ADM Date: 08/26/20 Loc: ED Attending Dr: Ordering Physician: MAURA MCDOWELL Date of Service: 08/26/20 Procedure(s): XR wrist 2V LT Accession Number(s): [id number] cc: MAURA MCDOWELL Fluoro Time In Minutes: XR wrist 2V LT INDICATION: wrist deformity and pain previous injury COMPARISON: None. FINDINGS/IMPRESSION: Impacted transverse distal radial fracture. No intra-articular extension. Dorsal angulation. Associated avulsion fracture of the ulnar styloid process. Carpal rows are maintained. Signer Name: Sky Fregoso MD Signed: 08/26/2020 11:55 PM Workstation Name: [id number] Transcribed By: CS Dictated By: Sky Fregoso MD Electronically Authenticated By: Sky Fregoso MD Signed Date/Time: 08/26/202354 DD/ 53 TD/TT: Print Cancel - Medical Decision Making 58-year-old female status post fall with wrist fracture several weeks ago with no need to follow-up with orthopedic x-ray shows continued fracture subacute wo rsening deformity pulses 2+ no evidence of any compartment syndrome at present. Stressed need to follow-up with orthopedic for definitive treatment. Area was splinted placed in a sling. Advised follow-up with orthopedic for definitive treatment. This present time she does not demonstrate any significant complications of the fracture such as compartment syndrome, arterial or nerve injury. Critical care attestation.: If time is entered above; I have spent that time in minutes in the direct care of this critically ill patient, excluding procedure time. ED Disposition Clinical Impression: Wrist fracture, left Disposition: DC-01 TO HOME OR SELFCARE Is pt being admited?: No Does the pt Need Aspirin: No Condition: Stable Instructions: Cast or Splint Care, Adult, [id number], Wrist Fracture Treated With ORIF, Wrist Fracture Treated With Immobilization, [id number] Additional Instructions: Injury follow-up with the orthopedic provider as we discussed today the extreme necessity to be doing so to appropriately manage this wrist injury. Prescriptions: Ketorolac [Toradol] 10 mg PO Q6H PRN #10 tablet PRN Reason: Pain Referrals: [facility] [Provider Group] - 3-5 Days PRIMARY CARE, [Primary Care Provider] - 3-5 Days MICHEL ACEVEDO MD [Staff Physician] - 3-5 Days
== END 2020-08-27 02:30 | disposition home or self-care (01) ==
LOC: ED 19:02
DX: S62.102A Fracture of unspecified carpal bone, left wrist, initial encounter for closed fracture (principal); I10 Essential (primary) hypertension; M19.90 Unspecified osteoarthritis, unspecified site; F32.9 Major depressive disorder, single episode, unspecified; J44.9 Chronic obstructive pulmonary disease, unspecified; Z98.51 Tubal ligation status; Z79.899 Other long term (current) drug therapy; Z88.0 Allergy status to penicillin; Z88.8 Allergy status to other drugs, medicaments and biological substances; Z98.890 Other specified postprocedural states; X58.XXXA Exposure to other specified factors, initial encounter; Y93.89 Activity, other specified; Y92.89 Other specified places as the place of occurrence of the external cause; Y99.8 Other external cause status
CPT/HCPCS: 29125; 73100; 96374; 99284; J1885

== ENCOUNTER 2020-12-06 15:54 | Outpatient (CLI) | payer MEDICARE ==
--- NOTE | 2020-12-06 17:04 | XRay Report ---
LEFT WRIST 4 VIEWS INDICATION / CLINICAL INFORMATION: PAIN IN LEFT WRIST COMPARISON: Left wrist series from 08/26/2020. FINDINGS: BONES and JOINT(S): An avulsion fracture of the ulnar styloid is again seen. There is evidence of int erval healing of the previously seen distal radial metaphyseal fracture with persistent dorsal angula tion. SOFT TISSUES: Mild edema remains along the wrist. ADDITIONAL FINDINGS: None. IMPRESSION: Evidence of interval healing of the left distal radial fracture without other significant interval ch anges. Signer Name: Amado Larson MD Signed: 12/06/2020 4:59 PM Workstation Name: [id number]
== END 2020-12-06 15:55 | disposition home or self-care (01) ==
LOC: XRAY 15:54
PROVIDERS: ATTEND Orthopaedic Surgery
DX: S52.592D Other fractures of lower end of left radius, subsequent encounter for closed fracture with routine healing (principal); M79.89 Other specified soft tissue disorders; X58.XXXD Exposure to other specified factors, subsequent encounter

== ENCOUNTER 2020-12-17 09:36 | Emergency (ER) | payer MEDICARE ==
[2020-12-17] MEDS ORDERED: ONDANSETRON 4 MG/2 ML INJ IV ONE (10:48)
[2020-12-17] MEDS ORDERED: SODIUM CHLORIDE 0.9% 1000 ML 1,000 ML IV ONE (10:48)
[2020-12-17] MEDS ORDERED: MORPHINE 2 MG/1 ML INJ IV ONE (10:48)
--- NOTE | 2020-12-17 10:51 | Emergency Department Report ---
ED Abdominal Pain HPI - General Chief Complaint: Abdominal Pain Stated Complaint: ABD PAIN Time Seen by Provider: 12/17/20 10:26 Source: patient, EMS Mode of arrival: Stretcher Limitations: No Limitations - History of Present Illness Initial Comments: 60-year-old female, history of irritable bowel syndrome, presents to ED with complaint of abdominal pain x1 week. She reports associated nausea and vomiting as well. Patient states pain is located around her bellybutton. She denies any fever, diarrhea, or urinary symptoms. Patient reports she had some coffee- ground emesis as well. MD Complaint: abdominal pain -: week(s) (1) Location: periumbilical Radiation: none Migration to: no migration Severity: moderate Severity scale (0 -10): 8 Quality: aching Consistency: constant Improves With: nothing Worsens With: nothing Associated Symptoms: nausea, vomiting. denies: diarrhea, fever, constipation, dysuria - Related Data Previous Rx's Medication Instructions Recorded Last Taken Type Ibuprofen [Motrin] 800 mg PO Q8HR PRN #30 tablet 12/18/15 Unknown Rx Dicyclomine [Bentyl] 20 mg PO QID PRN #20 tablet 12/17/20 Unknown Rx Nitrofurantoin Dallam/M-Cryst 100 mg PO Q12HR 7 Days #14 capsule 12/17/20 Unknown Rx [Macrobid CAP] Ondansetron [Zofran Odt] 4 mg PO Q8HR PRN #20 tab.rapdis 12/17/20 Unknown Rx Allergies Allergy/AdvReac Type Severity Reaction Status Date / Time doxycycline Allergy Shortness Verified 12/17/20 09:57 of Breath levofloxacin [From Levaquin] Allergy Hives Verified 12/17/20 09:57 Penicillins Allergy Hives Verified 12/17/20 09:57 acetaminophen AdvReac Severe Unknown Verified 12/17/20 09:57 ED Review of Systems ROS: Stated complaint: ABD PAIN Other details as noted in HPI Comment: All other systems reviewed and negative Constitutional: denies: chills, fever Gastrointestinal: abdominal pain, nausea, vomiting. denies: diarrhea, constipation ED Past Medical Hx - Past Medical History Hx Hypertension: Yes Hx Arthritis: Yes (osteoarthritis) Hx Psychiatric Treatment: Yes (manic depression) Hx COPD: Yes Additional medical history: IBS, DJD, - Surgical History Additional Surgical History: R Knee Surg in August 2012. tubal ligation - Social History Smoking Status: Former Smoker Substance Use Type: None - Medications Home Medications: Home Medications Medication Instructions Recorded Confirmed Last Taken Type Ibuprofen [Motrin] 800 mg PO Q8HR PRN #30 tablet 12/18/15 Unknown Rx Dicyclomine [Bentyl] 20 mg PO QID PRN #20 tablet 12/17/20 Unknown Rx Nitrofurantoin Dallam/M-Cryst 100 mg PO Q12HR 7 Days #14 capsule 12/17/20 Unknown Rx [Macrobid CAP] Ondansetron [Zofran Odt] 4 mg PO Q8HR PRN #20 tab.rapdis 12/17/20 Unknown Rx ED Physical Exam - General Limitations: No Limitations General appearance: alert, in no apparent distress - Head Head exam: Present: atraumatic, normocephalic - Eye Eye exam: Present: normal appearance, EOMI - ENT ENT exam: Present: mucous membranes moist - Neck Neck exam: Present: normal inspection - Respiratory Respiratory exam: Present: normal lung sounds bilaterally. Absent: respiratory distress - Cardiovascular Cardiovascular Exam: Present: regular rate, normal rhythm - GI/Abdominal GI/Abdominal exam: Present: soft, tenderness (Diffuse). Absent: distended - Extremities Exam Extremities exam: Present: normal inspection - Neurological Exam Neurological exam: Present: alert, oriented X3 - Psychiatric Psychiatric exam: Present: normal affect, normal mood - Skin Skin exam: Present: warm, dry, intact, normal color ED Course Vital Signs 12/17/20 12/17/20 12/17/20 09:55 10:05 15:19 Temperature 98.4 F 98.1 F Pulse Rate 88 83 Respiratory 13 14 Rate Blood Pressure 110/83 116/79 [Left] O2 Sat by Pulse 98 98 98 Oximetry ED Medical Decision Making - Lab Data Result diagrams: 12/17/20 11:28 12/17/20 11:28 - Radiology Data Radiology results: report reviewed, image reviewed - Medical Decision Making 60-year-old female presents to ED with abdominal pain x1 week. Work-up is significant for UTI on UA. CT abdomen pelvis is negative for any acute abnormalities. Patient feeling much better at this time following tray and Zofran here in the ED. She will be discharged with prescription for a ntibiotics. Outpatient follow-up advised, return precautions given. - Differential Diagnosis Chronic abdominal pain, UTI, bowel obstruction, pancreatitis Critical care attestation.: If time is entered above; I have spent that time in minutes in the direct care of this critically ill patient, excluding procedure time. ED Disposition Clinical Impression: UTI (urinary tract infection), Abdominal pain, Nausea & vomiting Disposition: 01 HOME / SELF CARE / HOMELESS Is pt being admited?: No Condition: Stable Instructions: Urinary Tract Infection, Adult, [id number], Abdominal Pain (ED) Prescriptions: Dicyclomine [Bentyl] 20 mg PO QID PRN #20 tablet PRN Reason: abdominal pain Nitrofurantoin Dallam/M-Cryst [Macrobid CAP] 100 mg PO Q12HR 7 Days #14 capsule Ondansetron [Zofran Odt] 4 mg PO Q8HR PRN #20 tab.rapdis PRN Reason: Vomiting Referrals: PRIMARY CARE, [Primary Care Provider] - 3-[address] [facility] [Provider Group] - 3-5 Days Time of Disposition: 14:59
[2020-12-17 12:16] LABS: Basophils # (Auto) 0.1 K/mm3 (0.0-0.1); Basophils % (Auto) 0.8 % (0.0-1.8); Eosinophils # (Auto) 0.2 K/mm3 (0.0-0.4); Eosinophils % (Auto) 3.3 % (0.0-4.3); Hematocrit 41.4 % (30.3-42.9); Hemoglobin 13.4 gm/dl (10.1-14.3); Lymphocytes # (Auto) 1.7 K/mm3 (1.2-5.4); Lymphocytes % (Auto) 25.8 % (13.4-35.0); Mean Corpuscular HGB Conc 32 % (30-34); Mean Corpuscular Volume 91 fl (79-97); Monocytes # (Auto) 0.7 K/mm3 (0.0-0.8); Monocytes % (Auto) 9.9 % (0.0-7.3); Platelet Count 231 K/mm3 (140-440); Red Blood Count 4.57 M/mm3 (3.65-5.03); Red Cell Distribution Width 13.8 % (13.2-15.2)
[2020-12-17 12:21] LABS: Alanine Aminotransferase 7 units/L (7-56); Albumin 3.3 g/dL (3.9-5); BUN/Creatinine Ratio 25; Blood Urea Nitrogen 20 mg/dL (7-17); Hemolysis Index 35
[2020-12-17 12:29] LABS: Bilirubin,Direct < 0.2 mg/dL (0-0.2)
--- NOTE | 2020-12-17 13:10 | Cat Scan Report ---
CT ABDOMEN AND PELVIS WITH CONTRAST INDICATION: Abdominal pain CONTRAST: 100 cc Omnipaque 300 IV COMPARISON: None available. All CT scans at this location are performed using CT dose reduction for ALARA by means of automated e xposure control. FINDINGS: Views of the lung bases show no acute infiltrates. A solid nodule is seen laterally in the periphery of the left lower lobe measuring 3 mm without calcification. In the left cardiophrenic angl e fat, a small nodule is seen measuring 6 mm which likely is a small lymph node. No pneumoperitoneum is seen. Tiny probable cyst is seen in the lower pole of the left kidney. No othe r abdominal masses are seen. No urinary obstructive changes are noted. Gallbladder and bile ducts maria c w no abnormalities. Mild fatty infiltration of the liver is seen with borderline enlargement having a length of 17.9 cm but without obvious focal lesion. No lymphadenopathy is seen in the abdomen or pelvis. No free fluid is noted. No evidence of bowel obs truction is seen. No inflammatory changes are noted. Appendix appears within normal limits. No pelvic masses are seen. IMPRESSION: 1. No acute abnormalities are seen 2. Small peripheral nodule in the left lower lobe 3. Mildly unusual low small probable lymph node in the left cardiophrenic angle fat. I doubt this is significant though follow-up may be useful to assure stability. No other lymphadenopathy seen however . INCIDENTAL PULMONARY NODULE RECOMMENDATIONS Solid Nodule size* <6 mm -- Single or Multiple - Low Risk Patient: No routine follow-up - High Risk Patient: Optional CT at 12 months Note These recommendations do not apply to lung cancer screening, patients with immunosuppression, o r patients with known primary cancer. Note Newly detected indeterminate nodule in persons 35 years of age or older. Persons under the age of 35 should not receive follow-up unless there is a known primary cancer. Low Risk Patient -- minimal or absent history of smoking and of other known risk factors. High Risk Patient -- history of smoking or of other known risk factors. *Dimensions are average of long and short axes, rounded to the nearest millimeter. Based on 2017 Fleischner Society Guidelines found in Radiology 2017 284:228-243. https://doi.org/10.1 148/radiol.[email or web address] Signer Name: Jareth Duke MD Signed: 12/17/2020 1:05 PM Workstation Name: [id number]
[2020-12-17 14:51] LABS: Bacteria,Urine 1+ /HPF (Negative); Bilirubin,Urine NEG (Negative); Blood,Urine LG (Negative); Color,Urine Straw (Yellow); Mucus,Urine FEW /HPF; Protein,Urine <15 mg/dL mg/dL (Negative); Urobilinogen,Urine < 2.0 mg/dL (<2.0)
[2020-12-17 15:19] VITALS: BP 116/79
--- NOTE | 2020-12-18 19:00 | Electrocardiograph Report ---
[facility] Test Date: 2020-12-17 Test Time: 10:14:11 Pat Name: RICARDO NAVARRO Department: Room: Gender: F [employer] Supervisor: BRIAN : 1960 Requested By: CORDELL CARBAJAL Order Number: [id number] Reading MD: Caro Davis Measurements Intervals [place] Rate: 89 P: 77 NH: 136 QRS: 81 QRSD: 83 T: 78 QT: 350 QTc: 426 Interpretive Statements Sinus rhythm No previous ECG available for comparison Electronically Signed On 12-18-2020 18:59:53 EDT by Caro Davis
== END 2020-12-17 15:20 | disposition home or self-care (01) ==
LOC: ED 09:36
DX: N39.0 Urinary tract infection, site not specified (principal); R11.2 Nausea with vomiting, unspecified; R10.33 Periumbilical pain; I10 Essential (primary) hypertension; M19.90 Unspecified osteoarthritis, unspecified site; F32.9 Major depressive disorder, single episode, unspecified; J44.9 Chronic obstructive pulmonary disease, unspecified; Z87.891 Personal history of nicotine dependence; Z88.1 Allergy status to other antibiotic agents; Z88.0 Allergy status to penicillin; Z88.6 Allergy status to analgesic agent; Z79.899 Other long term (current) drug therapy
CPT/HCPCS: 36415; 74177; 80048; 80076; 81001; 83690; 84484; 85025; 87086; 93005; 96361; 96374; 96375; 99284; J2270; J2405; J7030; Q9967

== ENCOUNTER 2021-01-08 14:21 | Outpatient (CLI) | payer MEDICARE ==
--- NOTE | 2021-01-08 17:38 | XRay Report ---
LEFT WRIST 4 VIEW(S) INDICATION / CLINICAL INFORMATION: PAIN IN LEFT WRIST . Follow-up fracture. COMPARISON: 12/06/2020 and 08/26/2020 FINDINGS: BONES / JOINT(S): Healed fracture of the distal left radius with moderate residual dorsal angulation. Nonunited fracture of the ulnar styloid process. Mild triscaphe degenerative arthrosis. SOFT TISSUES: Mild dorsal wrist soft tissue swelling. ADDITIONAL FINDINGS: None. Signer Name: Epi Ulloa MD Signed: 01/08/2021 5:33 PM Workstation Name: [id number]
== END 2021-01-08 14:22 | disposition home or self-care (01) ==
LOC: XRAY 14:21
PROVIDERS: ATTEND Orthopaedic Surgery
DX: S52.512A Displaced fracture of left radial styloid process, initial encounter for closed fracture (principal); S62.92XA Unspecified fracture of left hand, initial encounter for closed fracture; M79.89 Other specified soft tissue disorders; M19.032 Primary osteoarthritis, left wrist; X58.XXXA Exposure to other specified factors, initial encounter; Y93.89 Activity, other specified; Y92.89 Other specified places as the place of occurrence of the external cause; Y99.8 Other external cause status